=== PATIENT | female | born 1935 | race Caucasian/White ===

== ENCOUNTER 2018-07-30 09:48 | Day surgery (SDC) | payer OTHER ==
[~2018-07-30 09:48] MED LIST: SEVOFLURANE 15 MIN
[2018-07-30 12:08] LABS: ADD MAN DIFF? NO
[2018-07-30 12:14] LABS: BASOPHILS % 0.6 % (0.0-2.0); EOSINOPHILS % 0.6 % (0.0-7.0); HEMATOCRIT 40.3 % (37.0-47.0); HEMOGLOBIN 13.5 g/dl (12.0-16.0); LYMPHOCYTES # 1.9 10^3/ul (0.8-2.9); LYMPHOCYTES % 40.6 % (15.0-51.0); MEAN CORPUSCULAR HEMOGLOBIN 31.1 pg (29.0-33.0); MEAN CORPUSCULAR HGB CONC 33.5 g/dl (32.0-37.0); MEAN CORPUSCULAR VOLUME 92.9 fl (82.0-101.0); MEAN PLATELET VOLUME 9.5 fl (7.4-10.4); MONOCYTE # 0.4 10^3/ul (0.3-0.9); MONOCYTES % 8.3 % (0.0-11.0); NEUTROPHIL # 2.3 10^3/ul (1.6-7.5); NEUTROPHILS % 49.7 % (39.0-77.0); PLATELET COUNT 221 10^3/UL (140-415); RED BLOOD COUNT 4.34 10^6/ul (4.20-5.40)
[2018-07-30 12:14] LABS: WHITE BLOOD COUNT 4.7 10^3/ul (4.8-10.8)
[2018-07-30 12:28] LABS: ANION GAP 5 (5-13); BLOOD UREA NITROGEN 11 mg/dl (7-20); CALCIUM 9.2 mg/dl (8.4-10.2); CARBON DIOXIDE 30 mmol/L (21-31); CHLORIDE 101 mmol/L (97-110); CREATININE 0.51 mg/dl (0.44-1.00); GLUCOSE 90 mg/dl (70-220); POTASSIUM 4.3 mmol/L (3.5-5.1); SODIUM 136 mmol/L (135-144)
[2018-07-30 12:33] LABS: INR 0.96; PROTIME 12.9 Sec (11.9-14.9)
[2018-07-30 12:34] LABS: PARTIAL THROMBOPLASTIN TIME 28.5 Sec (23.0-35.0)
[2018-07-30] MEDS ORDERED: DIPHENHYDRAMINE 50 MG INJ IV (13:00)
[2018-07-30] MEDS ORDERED: MEPERIDINE 25 MG INJ IV (13:00)
[2018-07-30] MEDS ORDERED: HYDROmorphONE 1 MG/5 ML IV SYRINGE IV ×3 (13:00)
[2018-07-30] MEDS ORDERED: FENTAnyl 50 MCG/ML VIAL IV ×3 (13:00)
[2018-07-30] MEDS ORDERED: ONDANSETRON 4 MG INJ IV (13:00)
[2018-07-30] MEDS ORDERED: EPHEDrine 25 MG/5 ML SYG IV (13:00)
[2018-07-30] MEDS ORDERED: OXYCODONE/ACETAMINOPHEN (5/325) TAB PO (13:00)
[2018-07-30] MEDS ORDERED: LABETALOL HCL 20MG INJ IV (13:00)
[2018-07-30] MEDS ORDERED: FENTAnyl 50 MCG/ML VIAL (13:02)
[2018-07-30] MEDS ORDERED: ROCURONIUM 50 MG INJ (13:02)
[2018-07-30] MEDS ORDERED: CEFAZOLIN 1 GM INJ (13:02)
[2018-07-30] MEDS ORDERED: PROPOFOL 20 ML (13:02)
[2018-07-30] MEDS ORDERED: ROPIVACAINE 0.5 % 30 ML VIAL (13:05)
[2018-07-30] MEDS ORDERED: LACTATED RINGER'S 1,000 ML IV (13:30)
[2018-07-30] MEDS ORDERED: KETOROLAC 30 MG INJ (13:36)
[2018-07-30] MEDS ORDERED: DEXAMETHASONE 4 MG/ML 5 ML INJ (13:36)
[2018-07-30] MEDS ORDERED: ONDANSETRON 4 MG INJ (13:36)
[2018-07-30] MEDS ORDERED: METOCLOPRAMIDE 10 MG INJ (13:36)
[2018-07-30] MEDS ORDERED: SUGAMMADEX SODIUM 200 MG/2 ML VIAL IV (14:18)
== END 2018-07-30 17:02 | disposition home or self-care (01) ==
LOC: SUR 09:48 → SDS 09:48 → SUR 17:02
DX: S52.572P Other intraarticular fracture of lower end of left radius, subsequent encounter for closed fracture with malunion (principal); S63.015D Dislocation of distal radioulnar joint of left wrist, subsequent encounter; S52.202D Unspecified fracture of shaft of left ulna, subsequent encounter for closed fracture with routine healing; X58.XXXD Exposure to other specified factors, subsequent encounter; G56.02 Carpal tunnel syndrome, left upper limb; E78.5 Hyperlipidemia, unspecified
CPT/HCPCS: 25415; 71045; 73090; 80048; 85025; 85610; 85730; 93005